=== PATIENT | male | born 1980 | race Hispanic/Latino ===

== ENCOUNTER → 2019-02-06 | Day surgery (SDC) | payer OTHER ==
[~2019-02-06] MED LIST: FENTANYL CITRATE/PF 100MCG/2 ML INJ ONE; LIDOCAINE HCL 2% LOCAL INJ 5 ML SDV VIAL INJ ONE; MIDAZOLAM HCL 2 MG/2 ML VIAL ONE; ONE DAILY FOR1 EAC1 PO; PROPOFOL IV EMULSION 10 MG/ML 50 ML VIAL ONE
[2019-02-06 16:40] VITALS: BP 117/76
--- NOTE | 2019-02-06 23:04 | Operative Report ---
DATE OF PROCEDURE: 02/06/2019 SURGEON: Maikel Luong MD PROCEDURE: EGD with biopsies. INDICATION FOR EGD: Dyspepsia, regurgitation. MEDICATIONS: The patient was done under MAC, please see anesthesiologist's note. PROCEDURE IN DETAIL: With the patient in left lateral decubitus position, a flexible fiberoptic Olympus gastroscope was introduced into the esophagus under direct visualization without any difficulty. There was some patchy erythema noted in distal esophagus. Minute tongues of velvety-red mucosa were noted to extend proximally from the GE junction and biopsies were obtained to rule out Alcantara's. The scope was then advanced with ease into the stomach. Mucosa overlying the antrum and the body revealed some patchy erythema and low-grade to moderate edema and biopsies were obtained and sent to stain for H pylori. The pylorus was of normal contour and shape, was intubated with ease and the scope was advanced all the way to the second portion of the duodenum. Biopsies were obtained from the second portion and duodenal bulb to rule out sprue. The scope was then withdrawn back into the stomach and retroflexed. Mucosa overlying the fundus and cardia appeared to be within normal limits. The scope was then straightened out, it was subsequently withdrawn. The patient tolerated the procedure well. IMPRESSION: 1. Distal esophagitis, mild. 2. Rule out Alcantara esophagus. 3. Gastritis, biopsied. Biopsies sent to stain for Helicobacter pylori. 4. Rule out sprue. PLAN: Follow up histology. Initiate Protonix 40 mg one p.o. q.a.m. before meals. Maikel Luong MD [facility] [place] [facility] [place] /[id number] cc: Jey Mckinley MD
== END | disposition home or self-care (01) ==
LOC: OR 11:58
PROVIDERS: ATTEND Internal Medicine Gastroenterology
DX: K21.0 Gastro-esophageal reflux disease with esophagitis (principal); K29.70 Gastritis, unspecified, without bleeding; K29.50 Unspecified chronic gastritis without bleeding; B96.81 Helicobacter pylori [H. pylori] as the cause of diseases classified elsewhere; R14.0 Abdominal distension (gaseous); R11.10 Vomiting, unspecified; R12 Heartburn; Z01.810 Encounter for preprocedural cardiovascular examination; R11.11 Vomiting without nausea; Z68.28 Body mass index [BMI] 28.0-28.9, adult
CPT/HCPCS: 43239; 93005; J2001; J2250; J2704; J3010